=== PATIENT | male | born 1955 | race Caucasian/White ===

== ENCOUNTER 2016-10-13 16:06 | Inpatient (IN) | payer OTHER, MEDICARE ==
[~2016-10-13] VITALS: Ht 182.9 cm; Wt 109.8 kg
[2016-10-13] MEDS ORDERED: CLON1TAB PO (16:24)
[2016-10-13] MEDS ORDERED: DEXT1CAP3 PO (16:24)
[2016-10-13] MEDS ORDERED: DIVA125C PO (16:24)
[2016-10-13] MEDS ORDERED: RAME8TAB9 PO (16:24)
--- NOTE | 2016-10-13 16:27 | NUR ---
pt medically cleared. transfer to floor pending due mhu being ready to accept the pt.
--- NOTE | 2016-10-13 18:32 | NUR ---
pt transfered to [facility] in stable condition
[2016-10-13 20:00] VITALS: BP 149/88
[2016-10-13] MEDS ORDERED: TEMAZEPAM 7.5 MG CAPSULE ONE (22:51)
[2016-10-13] MEDS: TEMAZEPAM 7.5 MG CAPSULE PO PRN (22:54)
--- NOTE | 2016-10-14 06:40 | NUR ---
GPS NURSING: PT IS ADMITTED FROM ER AT 1815 VIA WHEELCHAIR. PT IS ALERT AND ORIENTED X 1. PER HOLD, PT BECAME INCREASINGLY CONFUSED, ANXIOUS, AND AGITATED. PT GRABBED CAREGIVER BY THE NECK. PT IS POOR HISTORIAN AND UNABLE TO PROVIDE ANY INFORMATION. PT IS ABLE TO FOLLOW DIRECTIONS AT THIS TIME. PT IS FORGETFUL AND ASKS THE SAME QUESTION. STUTTER IS PRESENT AND PT HAS DIFFICULTY STATING HIS NEEDS. PT AMBULATES WITHOUT ASSISTANCE. PT WANDERS INTO WRONG ROOMS AND NEEDS TO BE REDIRECTED. PT'S WAS NOTIFIED. DR. AMANDA WAS NOTIFIED. PT HAS NO MEDICAL MEDICATIONS. PT IS UNABLE TO SIGN ANY PAPERWORK. WILL CONTINUE TO MONITOR.
[2016-10-14 07:30] VITALS: BP 136/90
[2016-10-14] MEDS: MAG HYDROX/AL HYDROX/SIMETH 30 ML LIQUID UDC PO PRN (12:50)
[2016-10-14] MEDS ORDERED: HALOPERIDOL 2 MG TABLET PO SCH (13:00)
[2016-10-14] MEDS: BENZTROPINE MESYLATE 1 MG TABLET PO SCH ×2 (14:24→17:09)
[2016-10-14] MEDS: FLUVOXAMINE MALEATE 25 MG TABLET PO SCH ×2 (14:24→17:09)
[2016-10-14] MEDS: HALOPERIDOL 5 MG TABLET PO SCH ×2 (14:25→17:09)
[2016-10-14] MEDS: DIVALPROEX SPRINKLE 125 MG CAP.SPRINK PO SCH ×2 (14:25→17:09)
--- NOTE | 2016-10-14 15:29 | NUR ---
UR Note: Spoke with Timmy Porter CM [phone]. FAX [phone] and provided him with clinicals. The patient has been authorized from 10/13/16 through 10/15/16 with review due on 10/16/16. Authorization #[id number]
[2016-10-14] MEDS: CLONAZEPAM 0.5 MG TABLET PO SCH (17:10)
[2016-10-14] MEDS: TRAZODONE 50 MG TABLET PO SCH (20:11)
[2016-10-14 20:16] VITALS: BP 136/74
--- NOTE | 2016-10-14 20:50 | NUR ---
PATIENT RECEIVED SITTING IN DAY ROOM, WONDERING FROM DAY ROOM TO ROOM. NO AGGRESSIVE OR COMBATIVE BEHAVIOR NOTED WILL CONTINUE TO MONITOR. PATIENT REMAINS CONFUSED AND DISORIENTED REQUIRES FREQUENT REDIRECTION AND PROMPTING.PATIENT COMPLAINT WITH MEDICATION AND CARE. NO AGGRESSIVE OR COMBATIVE BEHAVIOR NOTED WILL CONTINUE TO MONITOR. PATIENT IS EASILY AGITATED, AND EASILY IRRITABLE WILL REDIRECT NEEDED. BED IN LOWEST POSITION, BED LOCKED.
--- NOTE | 2016-10-15 05:43 | NUR ---
PATIENT SLEPT 9 HOURS, NO AGGRESSIVE OR COMBATIVE BEHAVIOR NOTED.
[2016-10-15 07:30] VITALS: BP 123/81
[2016-10-15] MEDS: BENZTROPINE MESYLATE 1 MG TABLET PO SCH ×3 (08:20→18:05)
[2016-10-15] MEDS: HALOPERIDOL 5 MG TABLET PO SCH ×3 (08:20→18:05)
[2016-10-15] MEDS: DIVALPROEX SPRINKLE 125 MG CAP.SPRINK PO SCH ×3 (08:20→18:05)
[2016-10-15] MEDS: CLONAZEPAM 0.5 MG TABLET PO SCH ×2 (08:20→18:04)
[2016-10-15] MEDS: FLUVOXAMINE MALEATE 25 MG TABLET PO SCH ×3 (08:20→18:05)
--- NOTE | 2016-10-15 13:45 | NUR ---
Initial discharge instructions: The patient resides at home [[address] [place] [address]; ] with his family. The patient's is his primary caregiver in addition to a professional caregiver that was coming to stay with the patient while his was at work. Spoke with the patient's /DPOA who stated that she does not think she can take him back home due to his unpredictable behavior. She stated that she is considering placing the patient at a halfway facility that can better meet his needs. SS will speak with patient, family, and MD regarding most appropriate discharge. SS will form a safe and proper discharge plan.
[2016-10-15 15:20] VITALS: BP 110/82
--- NOTE | 2016-10-15 19:45 | NUR ---
PT RECEIVED WANDERING IN THE [address], REMAINS FORGETFUL AND DISORIENTED. PT RESPONDS TO DIRECTIONS AND PROMPTING. NO AGITATION, PT SOMEWHAT ANXIOUS WHEN HE CANNOT REMEMBER THINGS. NEEDS FREQUENT REDIRECTION, WILL CONTINUE TO MONITOR.
[2016-10-15] MEDS: TRAZODONE 50 MG TABLET PO SCH (20:15)
[2016-10-15 20:35] VITALS: BP 136/70
[2016-10-16] MEDS: TEMAZEPAM 7.5 MG CAPSULE PO PRN (00:19)
[2016-10-16 07:05] LABS: BASOPHILS % (AUTO) 0.3 % (0.0-2.0); EOSINOPHILS % (AUTO) 0.7 % (0.0-7.0); HEMATOCRIT 44.6 % (36.7-47.1); HEMOGLOBIN 15.7 g/dL (12.5-16.3); LYMPHOCYTES # (AUTO) 2.3 K/uL (20.0-40.0); MEAN CORPUSCULAR HEMOGLOBIN 33.6 uug (23.8-33.4); MEAN CORPUSCULAR HGB CONC 35 g/dL (32.5-36.3); MEAN CORPUSCULAR VOLUME 95.4 fL (73.0-96.2); MONOCYTES # (AUTO) 0.6 K/uL (2.0-10.0); MONOCYTES % (AUTO) 12.5 % (0.0-11.0); NEUTROPHILS # (AUTO) 2.2 K/uL (1.8-8.9); NEUTROPHILS % (AUTO) 43.5 % (38.5-71.5); PLATELET COUNT (AUTO) 143 K/uL (152-348); RED BLOOD CELL COUNT(AUTO) 4.67 MIL/uL (4.06-5.63); WHITE BLOOD COUNT (AUTO) 5.1 K/uL (3.6-10.2)
[2016-10-16 07:30] VITALS: BP 131/89
[2016-10-16 07:40] LABS: THYROID STIMULATING HORMONE 5.876 mIU/mL (0.358-3.740)
[2016-10-16 07:42] LABS: ALBUMIN 3.6 g/dL (3.4-5.0); BILIRUBIN,TOTAL 0.7 mg/dL (0.2-1.0); CALCIUM 9.1 mg/dL (8.5-10.1); MAGNESIUM 1.8 mg/dL (1.8-2.4); PHOSPHOROUS 4.1 mg/dL (2.5-4.9); POTASSIUM 3.8 mmol/L (3.5-5.1); TOTAL PROTEIN, SERUM 6.9 g/dL (6.4-8.2)
[2016-10-16] MEDS: BENZTROPINE MESYLATE 1 MG TABLET PO SCH ×3 (08:09→17:56)
[2016-10-16] MEDS: DIVALPROEX SPRINKLE 125 MG CAP.SPRINK PO SCH ×3 (08:09→17:34)
[2016-10-16] MEDS: HALOPERIDOL 5 MG TABLET PO SCH ×3 (08:09→17:34)
[2016-10-16] MEDS: FLUVOXAMINE MALEATE 25 MG TABLET PO SCH ×3 (08:09→17:35)
[2016-10-16] MEDS: CLONAZEPAM 0.5 MG TABLET PO SCH ×2 (08:09→17:34)
--- NOTE | 2016-10-16 12:55 | NUR ---
WEEKLY MEETING PO INTAKE GOOD ON REGULAR DIET, 75-100%. NO DIET RECOMMENDATIONS AT THIS TIME. LAST BM 10/15 SKIN INTACT MEDS: LIPITOR, NO DNI NOTED LABS: CHOLESTEROL 212 (H), LDL 136 (H) - REC FISH OIL NUTRITION DIAGNOSIS: ALTERED NUTRITION RELATED LABS RELATED TO CLINICAL CONDITION EVIDENCED BY ELEVATED LIPID LABS. MONITOR LABS, PO, WEIGHT Addendum: 10/16/16 at [address] Amended: Links added.
[2016-10-16 13:36] VITALS: BP 129/77
--- NOTE | 2016-10-16 15:35 | NUR ---
UR Note: Spoke with Timmy Porter CM [phone]. FAX [phone] and provided him with clinicals. The patient has been authorized from 10/16/16 through 10/18/16. Authorization #[id number] Addendum: 10/17/16 at 1028 by ADOLFO SIMPSON Review due Friday10/18/16
[2016-10-16 16:00] VITALS: BP 134/76
[2016-10-16] MEDS: TRAZODONE 50 MG TABLET PO SCH (20:07)
[2016-10-16] MEDS: ATORVASTATIN 10 MG TABLET PO SCH (20:07)
[2016-10-16 20:33] VITALS: BP 143/80
--- NOTE | 2016-10-16 21:01 | NUR ---
PATIENT RECEIVED LAYING IN BED. REMAINS CONFUSED AND DISORIENTED BUT REDIRECTABLE. PT IS EASILY FRUSTRATED. NO ACUTE DISTRESS NOTED. SAFETY MEASURES MAINTAINED.
[2016-10-17 07:30] VITALS: BP 140/68
[2016-10-17] MEDS: CLONAZEPAM 0.5 MG TABLET PO SCH ×2 (08:28→16:28)
[2016-10-17] MEDS: FLUVOXAMINE MALEATE 25 MG TABLET PO SCH ×3 (08:28→16:27)
[2016-10-17] MEDS: HALOPERIDOL 5 MG TABLET PO SCH ×3 (08:28→16:28)
[2016-10-17] MEDS: DIVALPROEX SPRINKLE 125 MG CAP.SPRINK PO SCH ×3 (08:28→16:28)
[2016-10-17] MEDS: BENZTROPINE MESYLATE 1 MG TABLET PO SCH ×3 (08:28→16:27)
--- NOTE | 2016-10-17 10:13 | NUR ---
Blender Helper TATIANA spoke with the patient's Luna Hernandez on Friday10/14/16 regarding patient's discharge plan. Luna stated that she does not feel comfortable taking the patient back home due to his unpredictable behavior. She stated that although she and a professional caregiver take care of the patient, she does think it is safe for her to manage the patient at home any longer. Luna stated that the patient has a budget of $2,100 per month that can be used towards placement at a [facility] facility (assisted living or board and care). TATIANA informed Luna that the patient does not have any skilled need and that it is unlikely that the patient's insurance will authorize SNF placement. TATIANA referred Luna to [facility], contact: Armando March and Luna stated that she would like to accept his suggestions/resources. TATIANA spoke with Armando March on 10/15/16 who stated that he spoke with Luna and that she told him she does not want to pay privately. She told Armando that she is hoping that she can place the patient into a SNF for assisted care once his medicare and medical are active. Tatiana called Luna to follow-up regarding placement on Friday10/16/16 and Luna handed the phone to her elder law assistant attorney general Page. Spoke with Page who asked if the patient can be placed at a SNF short term because the patient's medical is pending. TATIANA informed Page that TATIANA will ask the patient's insurance if they can authorize SNF placement short term but that there is no guarantee. Page then handed the phone back to Luna who stated that she does not want to pay privately. Tatiana again informed Luna that the SW will attempt to get authorization for SNF placement through [facility] but that it is not a guarantee and that there must be a second plan (home with 24 hour care vs. assisted living/board and care placement). TATIANA is actively attempting to contact patient's health insurance to see if they will authorize SNF placement for the patient. Addendum: 10/17/16 at 1243 by ADOLFO SIMPSON Per 's request, an inquiry was sent to several SNFs: 1.) [facility] 2.) [facility] 3.) [facility] 4.) [facility] 5.) [facility] [phone] - not able to accept per Sheron in admissions
[2016-10-17 13:11] VITALS: BP 146/80
[2016-10-17 16:00] VITALS: BP 124/88
[2016-10-17] MEDS: AMLODIPINE 5 MG TABLET PO SCH (16:28)
[2016-10-17] MEDS: LORAZEPAM 0.5 MG TABLET PO PRN (19:40)
[2016-10-17] MEDS: TRAZODONE 50 MG TABLET PO SCH (20:01)
[2016-10-17] MEDS: ATORVASTATIN 10 MG TABLET PO SCH (20:01)
[2016-10-17 20:05] VITALS: BP 166/83
[2016-10-17] MEDS: TEMAZEPAM 7.5 MG CAPSULE PO PRN (22:50)
[2016-10-18 07:30] VITALS: BP 145/85
[2016-10-18] MEDS: DIVALPROEX SPRINKLE 125 MG CAP.SPRINK PO SCH ×3 (08:36→16:14)
[2016-10-18] MEDS: FLUVOXAMINE MALEATE 25 MG TABLET PO SCH ×3 (08:36→16:14)
[2016-10-18] MEDS: CLONAZEPAM 0.5 MG TABLET PO SCH ×2 (08:36→16:14)
[2016-10-18] MEDS: HALOPERIDOL 5 MG TABLET PO SCH ×4 (08:36→21:04)
[2016-10-18] MEDS: BENZTROPINE MESYLATE 1 MG TABLET PO SCH ×4 (08:36→21:04)
[2016-10-18] MEDS: AMLODIPINE 5 MG TABLET PO SCH (08:36)
[2016-10-18 09:04] LABS: THYROID STIMULATING HORMONE 2.784 mIU/mL (0.358-3.740)
[2016-10-18] MEDS: LORAZEPAM 0.5 MG TABLET PO PRN (09:21)
[2016-10-18] MEDS ORDERED: LORAZEPAM 1 MG TABLET PO PRN (11:30)
[2016-10-18 16:04] VITALS: BP 132/82
[2016-10-18 16:11] LABS: *BILIRUBIN,URIN NEGATIVE (NEGATIVE); *BLOOD, URINE Trace-intact (NEGATIVE); *COLOR,URINE YELLOW (YELLOW); *KETONES,URINE NEGATIVE (NEGATIVE); *PROTEIN,URINE NEGATIVE (NEGATIVE); *UROBILINOGEN,URINE 0.2 E.U./dl (NORMAL); LEUKOCYTE ESTERASE ,URINE NEGATIVE (NEGATIVE); NITRITE, URINE NEGATIVE (NEGATIVE); UGLUCOSE NEGATIVE (NEGATIVE)
--- NOTE | 2016-10-18 16:32 | NUR ---
UR Note: Spoke with Timmy Porter CM [phone] ext. [phone] and provided him with clinicals. The patient has been authorized for an additional 2 days (10/19/16-10/20/16) with review due on 10/21/16. Authorization #[id number]
[2016-10-18 17:16] LABS: *CLARITY,URINE CLEAR (CLEAR)
[2016-10-18 17:18] LABS: WBC,URINE 0-3 /HPF (0-3)
[2016-10-18 20:58] VITALS: BP 131/86
[2016-10-18] MEDS ORDERED: HALOPERIDOL 5 MG TABLET PO SCH (21:00)
[2016-10-18] MEDS: ATORVASTATIN 10 MG TABLET PO SCH (21:03)
[2016-10-18] MEDS: RIVASTIGMINE TARTRATE 1.5 MG CAPSULE PO SCH (21:03)
[2016-10-18] MEDS: TRAZODONE 100 MG TABLET PO SCH (21:04)
[2016-10-18] MEDS ORDERED: LORAZEPAM 0.5 MG TABLET PO PRN (22:15)
[2016-10-19 07:30] VITALS: BP 135/94
[2016-10-19] MEDS: AMLODIPINE 5 MG TABLET PO SCH (08:32)
[2016-10-19] MEDS: RIVASTIGMINE TARTRATE 1.5 MG CAPSULE PO SCH ×2 (08:32→21:33)
[2016-10-19] MEDS: FLUVOXAMINE MALEATE 25 MG TABLET PO SCH ×3 (08:32→17:15)
[2016-10-19] MEDS: BENZTROPINE MESYLATE 1 MG TABLET PO SCH ×3 (08:32→21:34)
[2016-10-19] MEDS: HALOPERIDOL 5 MG TABLET PO SCH ×3 (08:32→21:34)
[2016-10-19] MEDS: CLONAZEPAM 0.5 MG TABLET PO SCH ×2 (08:33→17:15)
[2016-10-19] MEDS: DIVALPROEX SPRINKLE 125 MG CAP.SPRINK PO SCH ×3 (08:33→17:15)
[2016-10-19] MEDS ORDERED: HALOPERIDOL 5 MG TABLET PO SCH (09:00)
[2016-10-19 16:00] VITALS: BP 132/81
[2016-10-19 21:04] VITALS: BP 139/81
[2016-10-19] MEDS: TRAZODONE 100 MG TABLET PO SCH (21:33)
[2016-10-19] MEDS: ATORVASTATIN 10 MG TABLET PO SCH (21:34)
--- NOTE | 2016-10-19 23:03 | NUR ---
GPS/NSG PATIENT FIRST OBSERVED IN ROOM AWAKE. PATIENT CONTINUES 1:1 INTERVENTION FOR SAFETY. PATIENT WANDERS IN VARIOUS DIRECTIONS IF NOT MONITORED AT ALL TIMES PATIENT IS AT HIGH RISK FOR FALLS. COMPLIANT WITH MEDICATION WITH NURSING INTERVENTION.
[2016-10-20 07:30] VITALS: BP 149/91
[2016-10-20] MEDS: AMLODIPINE 5 MG TABLET PO SCH ×2 (08:22→21:23)
[2016-10-20] MEDS: BENZTROPINE MESYLATE 1 MG TABLET PO SCH ×3 (08:22→21:22)
[2016-10-20] MEDS: DIVALPROEX SPRINKLE 125 MG CAP.SPRINK PO SCH ×3 (08:22→17:02)
[2016-10-20] MEDS: RIVASTIGMINE TARTRATE 1.5 MG CAPSULE PO SCH ×2 (08:22→21:21)
[2016-10-20] MEDS: HALOPERIDOL 5 MG TABLET PO SCH ×3 (08:22→21:21)
[2016-10-20] MEDS: CLONAZEPAM 0.5 MG TABLET PO SCH ×2 (08:22→17:02)
[2016-10-20] MEDS: FLUVOXAMINE MALEATE 25 MG TABLET PO SCH ×3 (08:22→17:02)
[2016-10-20] MEDS: ACETAMINOPHEN 325 MG TABLET PO PRN (13:40)
[2016-10-20 16:00] VITALS: BP 145/81
[2016-10-20] MEDS: TRAZODONE 100 MG TABLET PO SCH (21:21)
[2016-10-20] MEDS: ATORVASTATIN 10 MG TABLET PO SCH (21:22)
[2016-10-20 21:25] VITALS: BP 145/82
[2016-10-21 07:30] VITALS: BP 132/88
[2016-10-21 08:13] LABS: ALBUMIN 3.5 g/dL (3.4-5.0); BILIRUBIN,TOTAL 0.5 mg/dL (0.2-1.0); CALCIUM 8.7 mg/dL (8.5-10.1); CREATININE 1.1 mg/dL (0.6-1.3); MAGNESIUM 1.6 mg/dL (1.8-2.4); PHOSPHOROUS 2.6 mg/dL (2.5-4.9); POTASSIUM 3.4 mmol/L (3.5-5.1); TOTAL PROTEIN, SERUM 6.8 g/dL (6.4-8.2)
[2016-10-21] MEDS: RIVASTIGMINE TARTRATE 1.5 MG CAPSULE PO SCH ×2 (08:25→21:01)
[2016-10-21] MEDS: BENZTROPINE MESYLATE 1 MG TABLET PO SCH ×3 (08:25→21:02)
[2016-10-21] MEDS: AMLODIPINE 5 MG TABLET PO SCH ×2 (08:25→21:03)
[2016-10-21] MEDS: DIVALPROEX SPRINKLE 125 MG CAP.SPRINK PO SCH ×3 (08:25→18:23)
[2016-10-21] MEDS: HALOPERIDOL 5 MG TABLET PO SCH ×3 (08:26→21:02)
[2016-10-21] MEDS: FLUVOXAMINE MALEATE 25 MG TABLET PO SCH ×3 (08:26→18:23)
[2016-10-21] MEDS: CLONAZEPAM 0.5 MG TABLET PO SCH ×2 (08:26→18:23)
[2016-10-21 08:36] LABS: BASOPHILS % (AUTO) 0.2 % (0.0-2.0); EOSINOPHILS % (AUTO) 0.7 % (0.0-7.0); HEMATOCRIT 45.7 % (36.7-47.1); HEMOGLOBIN 15.9 g/dL (12.5-16.3); LYMPHOCYTES # (AUTO) 0.5 K/uL (20.0-40.0); LYMPHOCYTES % (AUTO) 8.5 % (20.5-51.5); MEAN CORPUSCULAR HEMOGLOBIN 33.2 uug (23.8-33.4); MEAN CORPUSCULAR HGB CONC 35 g/dL (32.5-36.3); MEAN CORPUSCULAR VOLUME 95.6 fL (73.0-96.2); MONOCYTES # (AUTO) 0.6 K/uL (2.0-10.0); NEUTROPHILS # (AUTO) 4.7 K/uL (1.8-8.9); NEUTROPHILS % (AUTO) 80.6 % (38.5-71.5); PLATELET COUNT (AUTO) 140 K/uL (152-348); RED BLOOD CELL COUNT(AUTO) 4.78 MIL/uL (4.06-5.63); RED CELL DISTRIBUTION WIDTH 12.8 % (12.1-16.2); WHITE BLOOD COUNT (AUTO) 5.8 K/uL (3.6-10.2)
[2016-10-21] MEDS ORDERED: POTASSIUM CHLORIDE 20 MEQ TAB.PRT.SR PO ONE (10:15)
[2016-10-21] MEDS ORDERED: MAGNESIUM OXIDE 400 MG TABLET PO ONE (10:15)
[2016-10-21 10:45] LABS: BAND % (MANUAL) 1 % (0-10); LYMPHOCYTES % (MANUAL) 5 % (20-40); MONOCYTES % (MANUAL) 9 % (2-10); NEUTROPHILS % (MANUAL) 85 % (42-75)
[2016-10-21 10:46] LABS: PLATELET ESTIMATE SLIGHT DECREASED
[2016-10-21] MEDS: MAGNESIUM HYDROXIDE 30 ML LIQUID UDC PO PRN (11:35)
--- NOTE | 2016-10-21 13:04 | NUR ---
GPS/RN- PATIENT WEAK UNABLE TO PARTICIPATE WITH TOILETING, PATIENT UNABLE TO STAND UP, HELD MEDS THIS AFTERNOON, DECOMPENSATING IN ADL. CONTINUE TO MONITOR
[2016-10-21] MEDS ORDERED: BISACODYL 10 MG SUPP.RECT RC ONE (14:30)
--- NOTE | 2016-10-21 15:30 | NUR ---
GPS/RN- UNABLE TO SAFELY ADMINISTER SUPPOSITORY AT THIS TIME, PATIENT GUARDED AND HISTORY OF COMBATIVE BEHAVIOR, WILL ATTEMPT LATER THIS EVENING.
[2016-10-21 15:51] VITALS: BP 147/91
--- NOTE | 2016-10-21 16:58 | NUR ---
Spoke with , Mariel [phone] and discussed placement with her. Advised her Yumi has received many rejections from facilities. She insists she cannot take pt. home and pay for a caregiver but is willing to pay out of pocket until his Medi Walter kicks in. Will discuss with Yumi. Soco Mehta [phone] was contacted by this mortgage or loan underwriter. She requested that packet be faxed to her and Yumi agreed to do this. is open to [facility] Nguyen as mortgage or loan underwriter advised her that this facility can provide for his needs and since she is unable to care for him at home, we need to find an accepting facility which has not come to fruition so far. is also planning to take him off her healthplan so that he has straights Medicare. Since she is employed she put pt. on her healthplan so Medicare is secondary. She was hoping for a facility closer to home but will go where appropriate placement is found. Discussed all these factors with Yumi will follow up with , Mariel [phone] and Soco Nguyen [phone].
[2016-10-21] MEDS: BISACODYL 10 MG SUPP.RECT RC PRN (18:20)
--- NOTE | 2016-10-21 18:21 | NUR ---
GPS/RN- ADMINISTERED RECTAL SUPPOSITORY, PATIENT CONSTIPATED, ABDOMEN DISTENDED, LESS ANXIOUS, ABLE TO REDIRECT AND DISTRACT TO DECREASE ANXIETY.
[2016-10-21] MEDS: ATORVASTATIN 10 MG TABLET PO SCH (21:01)
[2016-10-21] MEDS: TRAZODONE 100 MG TABLET PO SCH (21:01)
[2016-10-21 21:04] VITALS: BP 155/87
[2016-10-21] MEDS: DOCUSATE SODIUM 100 MG/10 ML LIQUID UDC PO SCH (21:05)
--- NOTE | 2016-10-21 22:00 | NUR ---
received to care, lying in bed, asleep, but easy to awaken. 1;1 sitter remains at side at all times, for safety. abdomen remains distended, and tender to touch. no results yet from suppository. compliant with medications and staff direction. colace given at bedtime. apple juice and applesauce given, as well. as of 2200, he remains asleep. no distress noted. will continue to monitor closely.
--- NOTE | 2016-10-22 02:00 | NUR ---
pt had a small, soft bowel movement. diaper change was given. pt remains cooperative.
--- NOTE | 2016-10-22 02:20 | NUR ---
appears to be asleep. no distress noted.
--- NOTE | 2016-10-22 06:00 | NUR ---
slept 8 hours, total. assisted with AM care, and shower. had a very large soft/loose bowel movement. currently up in allegra chair. no distress noted. sitter remains at side.
[2016-10-22 07:30] VITALS: BP 154/90
[2016-10-22] MEDS: BENZTROPINE MESYLATE 1 MG TABLET PO SCH ×2 (08:16→12:41)
[2016-10-22] MEDS: DOCUSATE SODIUM 100 MG/10 ML LIQUID UDC PO SCH ×2 (08:16→21:00)
[2016-10-22] MEDS: RIVASTIGMINE TARTRATE 1.5 MG CAPSULE PO SCH ×2 (08:17→21:24)
[2016-10-22] MEDS: CLONAZEPAM 0.5 MG TABLET PO SCH ×3 (08:17→16:59)
[2016-10-22] MEDS: HALOPERIDOL 5 MG TABLET PO SCH ×3 (08:17→16:59)
[2016-10-22] MEDS: FLUVOXAMINE MALEATE 25 MG TABLET PO SCH ×3 (08:17→16:59)
[2016-10-22] MEDS: DIVALPROEX SPRINKLE 125 MG CAP.SPRINK PO SCH ×3 (08:18→16:59)
[2016-10-22] MEDS: AMLODIPINE 5 MG TABLET PO SCH ×2 (08:18→21:24)
--- NOTE | 2016-10-22 08:18 | NUR ---
UR Note: Called Timmy Porter CM [phone] ext. [phone] and left clinicals on his voicemail yesterday (10/21/16). Received a call from Timmy requesting for a peer to peer review yesterday. Timmy stated that someone from [facility] would be calling SW shortly to arrange an appointment for the review, however a call/voicemail was never received yesterday or today. Timmy was made aware that Dr. Mahmood would be covering for Dr. Guthrie and was provided with his contact information yesterday. Authorization #[id number]
--- NOTE | 2016-10-22 09:09 | NUR ---
Sw has referred to the following facilities per patient's 's request [Lunasanchez Thomasn ]: 1.) [facility] - not able to accept per Rikki 2.) [facility] - not able to accept per [place] 3.) [facility] - not able to accept per Valery 4.) [facility] - not able to accept per Alexandra in admissions 5.) [facility] [phone] - not able to accept per Sheron in admissions 6.) [facility] - not able to accept 7.) [facility] - not able to accept 8.) [facility] - not able to accept per Radha 9.) [facility] - not able to accept per Ally 10.) [facility] - Awaiting response 11.) [facility] - Awaiting response 12.) [facility] - Awaiting response 13.) [facility] - not able to accept per Beena 14.) [facility] - Awaiting response
--- NOTE | 2016-10-22 12:55 | NUR ---
[address] [employer] [employer] Patient's Luna Hernandez requested that the patient's facesheet, H&P, and medication list be faxed to Single Fold Machine Operator Vidhya . Per Luna, Vidhya is someone that was referred to her through a family member who will be assisting in finding placement for the patient. TATIANA has faxed over the requested documentation to Vidhya per Luna's request. TATIANA will make all efforts to assist in a safe and proper discharge plan for the patient.
--- NOTE | 2016-10-22 16:06 | NUR ---
UR Note: Received a call from Candy with [facility] ext. [phone] requesting peer to peer review. Appointment was set-up for Dr. Adam Briseno to call Dr. Natalia Mahmood at 1:30 pm today. Received a call from Candy with the outcome: The patient was authorized for 10/21-08/24 (yesterday and today) with review due tomorrow (10/23/16), if the hospital is requesting additional days. Verbal clinicals must be provided by Christian SIMPSON to the original Timmy Ronquillo CM [phone] ext. [phone]. Authorization #[id number]
[2016-10-22 20:36] VITALS: BP 136/85
[2016-10-22] MEDS: ATORVASTATIN 10 MG TABLET PO SCH (21:25)
--- NOTE | 2016-10-22 22:00 | NUR ---
received to care, asleep in bed. is able to be awoken, but goes right back to sleep, after being engaged. compliant with medications, and fluids(apple juice, and water).abdomen remains slightly distended, and tender, to the touch.1;1 sitter remains at side, for safety. as of 2199, he remainsd asleep. no distress noted. will continue to monitor closely.
--- NOTE | 2016-10-23 06:00 | NUR ---
slept 6 hours, total.
[2016-10-23 07:30] VITALS: BP 150/91
[2016-10-23] MEDS: CLONAZEPAM 0.5 MG TABLET PO SCH ×2 (10:00→17:33)
[2016-10-23] MEDS: FLUVOXAMINE MALEATE 25 MG TABLET PO SCH (10:00)
[2016-10-23] MEDS: DIVALPROEX SPRINKLE 125 MG CAP.SPRINK PO SCH ×3 (10:00→17:33)
--- NOTE | 2016-10-23 10:00 | NUR ---
GPS/RN-patient continues lethargic but arousable this am, reviewed meds, some medications held at this time due to patient continues to be lethargic, difficult to ambulate, continues to requires assistance with physical therapy and two staff to ambulate continue to monitor and assist with adls.
[2016-10-23] MEDS: AMLODIPINE 5 MG TABLET PO SCH ×2 (10:20→20:35)
[2016-10-23] MEDS: DOCUSATE SODIUM 100 MG/10 ML LIQUID UDC PO SCH ×2 (10:20→21:23)
[2016-10-23] MEDS: RIVASTIGMINE TARTRATE 1.5 MG CAPSULE PO SCH ×2 (10:20→20:35)
[2016-10-23 12:20] VITALS: BP 159/99
[2016-10-23] MEDS: MAG HYDROX/AL HYDROX/SIMETH 30 ML LIQUID UDC PO PRN (13:13)
[2016-10-23] MEDS: BENZTROPINE MESYLATE 1 MG TABLET PO SCH (13:51)
--- NOTE | 2016-10-23 14:04 | NUR ---
WEEKLY MEETING: TOLERATING CURRENT DIET(REGULAR)EATING 50-100% OF MEALS ANTHROPOMETRY:HT IS 72",CURRENT WT IS 242LB,BMI 32.8-OBESITY,10/22 242LB(WHEELCHAIR),10/21 239LB 3LB WT GAIN IN ONE DAY LIKELY ERROR IN MEASUREMENTS,NURSING/CARTON FORMING MACHINE TENDER RECHECK WEIGHT LABS: CHOLESTEROL-212(H),LDL-136(H),ON LIPITOR MEDICATION:COLACE,NORVASC,LIPITOR DNI NORVASC WITH LOW NA DIET BM PRESENT SKIN INTACT NUTRITION DIAGNOSIS: SUBOPTIMAL PO INTAKE RELATED TO ALTERED MENTAL STATUS EVIDENCED BY PO INTAKE < 75% OF MEALS INTERVENTION:IF PO INTAKE CONTINUE TO DECLINE WILL CONSIDER BOOST MONITOR;PO INTAKE,WT,NEW LABS
--- NOTE | 2016-10-23 14:10 | NUR ---
WEEKLY MEETING: TOLERATING CURRENT DIET,EATING < 75% OF MEALS, PER RN ST CONSULT PLACED DUE TO PT'S POOR SWALLOWING REC F/U WITH ST REC DIET. ANTHROPOMETRY:3LB WT GAIN NOTICED IN ONE DAY LIKELY AN ERROR IN MEASUREMENTS ,NURSING/ABAP DEVELOPER RECHECK WEIGHT NUTRITION DIAGNOSIS: SUBOPTIMAL PO INTAKE RELATED TO ALTERED MENTAL STATUS/SWALLOWING DIFFICULTIES, EVIDENCED BY PO <75% OF MEALS INTERVENTION: WILL REC F/U WITH ST RECOMMENDATIONS FOR DIET. IF PO INTAKE CONTINUE TO DECLINE < 75%,WILL CONSIDER BOOST MONITOR:PO INTAKE,WT,NEW LABS Addendum: 10/23/16 at [address] Amended: Links added.
--- NOTE | 2016-10-23 15:16 | NUR ---
UR Note: Spoke with Timmy Porter CM [phone] ext. [phone] and provided him with clinicals. The patient has been authorized for an additional day (today 10/23/16). If the patient is not discharged tomorrow and the hospital is requesting for additional days, [facility] will be requesting another peer to peer review between the MDs. Authorization #[id number]
--- NOTE | 2016-10-23 15:29 | NUR ---
Per patient's 's request [Luna Hernandez ], the patient was referred to: [facility] [[address] [place] [address] ] - Per Elvia in admissions, unable to accept due to no male beds -- The patient's Tactical Deception Plans Officer Vidhya referred the patient to [facility] [[address] [place] [address] ]. Antonino in admission came to assess the patient today at 2:00 pm. SW awaiting response. -- The patient was also referred to: [facility] [[address] [place] [address] ] - Per Paco in admissions, the patient has been accepted and his insurance will cover his stay at the facility.
[2016-10-23 16:00] VITALS: BP 137/96
[2016-10-23 20:06] VITALS: BP 125/78
[2016-10-23] MEDS: ATORVASTATIN 10 MG TABLET PO SCH (20:35)
[2016-10-23] MEDS: TEMAZEPAM 7.5 MG CAPSULE PO PRN (21:08)
--- NOTE | 2016-10-23 22:00 | NUR ---
received to care, lying in bed, sleeping intermittently, 1;1 sitter at side, for safety. compliant with medications, and staff direction. PRN restoril was given at 2107. as of 2199, he remains awake, but less restless. will continue to monitor closely.
[2016-10-24] MEDS: MAGNESIUM HYDROXIDE 30 ML LIQUID UDC PO PRN (01:00)
--- NOTE | 2016-10-24 01:00 | NUR ---
has been awake, intermittently. assisted to the commode, twice, at his request, but had no bowel movement; PRN milk of magnesia given. will continue to monitor closely.
--- NOTE | 2016-10-24 06:00 | NUR ---
slept 5.5 hours. assisted with AM care, and shower. still no bowel movement. sitter remains at side. no distress noted. Addendum: 10/24/16 at 0656 by MONICA CRANDALL LVN CORRECTION/SLEPT 2.25 HOURS TOTAL.
--- NOTE | 2016-10-24 06:00 | NUR ---
CORRECTION/ SLEPT 2.25 HOURS, TOTAL.
[2016-10-24 07:32] LABS: CALCIUM 8.9 mg/dL (8.5-10.1); CREATININE 1.2 mg/dL (0.6-1.3); MAGNESIUM 2.2 mg/dL (1.8-2.4); POTASSIUM 4.1 mmol/L (3.5-5.1)
[2016-10-24 08:04] VITALS: BP 150/92
[2016-10-24] MEDS: DOCUSATE SODIUM 100 MG/10 ML LIQUID UDC PO SCH ×2 (08:06→20:27)
[2016-10-24] MEDS: AMLODIPINE 5 MG TABLET PO SCH ×3 (09:00→20:27)
[2016-10-24] MEDS: RIVASTIGMINE TARTRATE 1.5 MG CAPSULE PO SCH ×2 (09:00→20:27)
[2016-10-24] MEDS: FLUVOXAMINE MALEATE 25 MG TABLET PO SCH (09:00)
[2016-10-24] MEDS: CLONAZEPAM 0.5 MG TABLET PO SCH ×2 (09:00→17:15)
[2016-10-24] MEDS: DIVALPROEX SPRINKLE 125 MG CAP.SPRINK PO SCH ×3 (09:00→17:14)
--- NOTE | 2016-10-24 11:53 | NUR ---
NOTIFIED DR HERNANDEZ THAT PT IS UNABLE TO TAKE PO MEDS DUE TO SWALLOWING PROBLEMS. NOTIFIED THAT BP RUNS HIGH, DR HERNANDEZ IS AWARE, NO NEW ORDERS AT THIS TIME.
[2016-10-24] MEDS: BENZTROPINE MESYLATE 1 MG TABLET PO SCH (12:05)
--- NOTE | 2016-10-24 14:51 | NUR ---
UR Note: Received a call from Candy with [facility] ext. [phone] requesting peer to peer review for 10/24/16. Appointment was set-up for Dr. Michael Rhodes to call Dr. Natalia Mahmood at 1:00 pm today. Received a call from Candy with the outcome: The patient was authorized for today (10/24/16) with tomorrow and onward denied. If the hospital is requesting an appeal for additional days, SW must contact Timmy Ronquillo CM [phone] ext. [phone]. Authorization #[id number]
[2016-10-24 15:18] VITALS: BP 136/85
[2016-10-24 20:00] VITALS: BP 154/64
[2016-10-24] MEDS: ATORVASTATIN 10 MG TABLET PO SCH (20:27)
--- NOTE | 2016-10-25 06:14 | NUR ---
GPS: REMAIN CALM AND COOPERATIVE WITH CARE AND MEDICATION. ASSISTED WITH ADL'S. SLEPT 3:15 HRS THROUGH THE NIGHT. CONTINUE ON 1:1 SITTER @ BEDSIDE FOR SAFETY. CONTINUE PLAN OF CARE.
[2016-10-25 08:00] VITALS: BP 145/66
--- NOTE | 2016-10-25 08:41 | NUR ---
The following is a list of all SNFs that the patient has been referred to as of yesterday: 1.) [facility] - not able to accept per Rikki 2.) [facility] - not able to accept per [place] 3.) [facility] - not able to accept per Valery 4.) [facility] - not able to accept per Alexandra in admissions 5.) [facility] [phone] - not able to accept per Sheron in admissions 6.) [facility] - not able to accept 7.) [facility] - not able to accept 8.) [facility] - not able to accept per Radha 9.) [facility] - not able to accept per Ally 10.) [facility] - Awaiting response 11.) [facility] - Awaiting response 12.) [facility] - not able to accept 13.) [facility] - not able to accept per Beena 14.) [facility] - not able to accept 15.) [facility] - not able to accept 16.) [facility] - not able to accept 17.) [facility] - Accepted (patient's was made aware on 10/23/16) 18.) [facility] - Accepted (patient's was was made aware as of last week) 19.) [facility] - Awaiting response 20.) [facility] - Awaiting response 21.) [facility] - Awaiting response 22.) [facility] - Awaiting response The following facilities were specifically faxed per patient's 's request from a list provided to her by [facility] [contact: Macy ref#[id number]]: 23.) [facility] - Awaiting response 24.) [facility] - Awaiting response 25.) [facility] - Awaiting response 26.) [facility] - Awaiting response
[2016-10-25] MEDS: DOCUSATE SODIUM 100 MG/10 ML LIQUID UDC PO SCH ×2 (09:00→22:22)
[2016-10-25] MEDS: DIVALPROEX SPRINKLE 125 MG CAP.SPRINK PO SCH ×3 (09:00→18:03)
[2016-10-25] MEDS: FLUVOXAMINE MALEATE 25 MG TABLET PO SCH (09:00)
[2016-10-25] MEDS: RIVASTIGMINE TARTRATE 1.5 MG CAPSULE PO SCH ×2 (09:00→21:00)
[2016-10-25] MEDS: CLONAZEPAM 0.5 MG TABLET PO SCH ×2 (09:00→18:03)
[2016-10-25] MEDS: AMLODIPINE 5 MG TABLET PO SCH ×2 (09:00→22:23)
[2016-10-25] MEDS: BENZTROPINE MESYLATE 1 MG TABLET PO SCH (13:40)
[2016-10-25 16:00] VITALS: BP 136/82
--- NOTE | 2016-10-25 16:53 | NUR ---
Casino Gaming Worker SW spoke with the patient's Luna Hernandez and informed her multiple times that the patient is no longer authorized to stay at [facility]. Luna was informed today that the patient was accepted to [facility] [[address] [place] [address] ] and that they would be able to accept the patient today however Luna stated that she did not like the faiclity and that she will not have him discharged there. Luna was also informed that [facility] [[address] [place] [address] ] has accepted the patient but that he will have to pay privately ($6,750) for 30 days. The patient's stated that she does not know what she wants to do and that she is on her way now to tour [facility] and will make a decision then. She stated that if she does not like it, she will pay for the patient to stay at [facility] over night tonight. Lastly the patient's was also given the choice to take the patient home with home health and however she did not agree to this. Luna has been adivsed that she will be responsible for the cost of the stay if she delays pt discharge.
--- NOTE | 2016-10-25 17:03 | NUR ---
Tentative Discharge Note: In the case that the patient's agrees to discharge the patient to SNF, the patient may be discharged to [facility] [[address], [place] [address] ] via ambulance. Please speak with the patient's Luna and confirm discharge plans with her prior to discharging the patient. Please contact Abby Boyer in admissions at the facility to confirm the discharge as well.
[2016-10-25 20:21] VITALS: BP 170/100
[2016-10-25] MEDS: ATORVASTATIN 10 MG TABLET PO SCH (22:24)
--- NOTE | 2016-10-26 05:48 | NUR ---
GPS/NSG- Pharmacy Patient's called and requested Exelon be held because it made patient sick. reported patient became nauseous and produced emesis. No episodes witnessed by staff this shift, will continue to monitor patient to ensure well being as well as report it to physician.
[2016-10-26 08:00] VITALS: BP 142/85
[2016-10-26] MEDS: RIVASTIGMINE TARTRATE 1.5 MG CAPSULE PO SCH ×3 (08:54→20:54)
[2016-10-26] MEDS: DIVALPROEX SPRINKLE 125 MG CAP.SPRINK PO SCH ×4 (08:54→17:00)
[2016-10-26] MEDS: DOCUSATE SODIUM 100 MG/10 ML LIQUID UDC PO SCH ×3 (08:54→20:54)
[2016-10-26] MEDS: CLONAZEPAM 0.5 MG TABLET PO SCH ×3 (08:54→17:00)
[2016-10-26] MEDS: FLUVOXAMINE MALEATE 25 MG TABLET PO SCH ×2 (08:55→09:00)
[2016-10-26] MEDS: AMLODIPINE 5 MG TABLET PO SCH ×3 (08:56→20:55)
[2016-10-26] MEDS: BENZTROPINE MESYLATE 1 MG TABLET PO SCH (13:05)
[2016-10-26 16:28] VITALS: BP 146/88
[2016-10-26] MEDS ORDERED: FLEET ENEMA 133 ML BOTTLE RC ONE (18:00)
--- NOTE | 2016-10-26 18:39 | NUR ---
PT NOTED TO HAVE DISTENDED, FIRM AND TENDER ABDOMEN. BOWEL SOUNDS ARE HYPOACTIVE. PT'S FAMILY INSISTING THAT PT BE TRANSFERRED TO [facility] BUT IS REFUSING TO ALLOW PT TAKE ANY MILK OF MAGNESIA. CALLED DR. HERNANDEZ WITH ORDER TO ADMINISTER FLEET ENEMA. EXPLAINED TO FAMILY THAT INTERVENTIONS NEED TO BE TAKEN BEFORE OTHER MORE DRASTIC EVENTS OCCURED, AND THE DOCTOR IS CALLED AND NOTIFIED. FAMILY AGREED TO MOM AND ENEMA. LAST BM NOTED TO BE 11/23/16. FLUIDS ENCOURAGED, TOLERATES WELL. WILL CONTINUE TO MONITOR.
[2016-10-26] MEDS: MAG HYDROX/AL HYDROX/SIMETH 30 ML LIQUID UDC PO PRN (18:45)
[2016-10-26] MEDS: MAGNESIUM HYDROXIDE 30 ML LIQUID UDC PO PRN (19:00)
--- NOTE | 2016-10-26 19:01 | NUR ---
PATIENT REC D FLEET ENEMA AND MOM 30CC FOR ABDOMINAL DISTENTION BOWEL SOUNDS HYPO ACTIVE , ABDOMEN FIRM. WANTS SOMETHING BEFORE ANY MORE PO MEDS , ELBOW RED ON RIGHT SIDE AND REDNESS ON LEFT SIDE NOTED. SMALL FECES BEFORE FLEET SOFT BROWN STGOOL CONTINUE TO MONITOR
[2016-10-26 20:39] VITALS: BP 136/83
[2016-10-26] MEDS: ATORVASTATIN 10 MG TABLET PO SCH (20:54)
[2016-10-26] MEDS: BISACODYL 10 MG SUPP.RECT RC PRN (21:32)
--- NOTE | 2016-10-26 21:57 | NUR ---
GPS/NSG Patient's requested that his be examined she had complaints regarding patient's distended abdomen and abrasion located on right elbow. Patient appears to place force on elbows while lying in bed, mepilex applied to prevent further irritation. Both elbows photographed and documented in chart. JOY LOADING MACHINE OPERATOR set turn Q2 hours added to patient's plan of care while in bed to prevent skin breakdown. Patient presents with a distended abdomen and has not had a reported bowel movement times four days. MOM and Fleet enema administered in the previous shift. nursing contacted Dr. Garces (on-call physician) to get further orders. KUB of abdomen ordered. Patient observed to have had a small bowel movement, soft brown formed stool. PRN supp. administered as ordered. Will follow up for outcome. Patient received a shower at 2200 ambulation encouraged. Patient able to walk from shower to room with moderate assist. Will continue to monitor for safety, patient is on a 1:1 for safety. monitor bowel movements.
--- NOTE | 2016-10-26 22:37 | NUR ---
NSG/GPS Communicated to patient's that physician ordered KUB and that I would notify her when results were made available as well as with any significant change.
--- NOTE | 2016-10-27 00:44 | NUR ---
GPS/NSG Called physician on-call to report KUB findings. Order to insert muhammad read back. Inserted muhammad output was 2300 mls tea color urine. Patient alert, tolerated insertion well. is aware patient no longer has abdominal distension. No distress noted, will continue to monitor.
[2016-10-27 01:22] LABS: *BILIRUBIN,URIN NEGATIVE (NEGATIVE); *BLOOD, URINE 3+ (NEGATIVE); *CLARITY,URINE CLEAR (CLEAR); *COLOR,URINE AMBER (YELLOW); *KETONES,URINE TRACE (NEGATIVE); *PROTEIN,URINE NEGATIVE (NEGATIVE); *UROBILINOGEN,URINE 0.2 E.U./dl (NORMAL); NITRITE, URINE NEGATIVE (NEGATIVE); UGLUCOSE NEGATIVE (NEGATIVE)
[2016-10-27 02:28] LABS: LEUKOCYTE ESTERASE ,URINE TRACE (NEGATIVE)
[2016-10-27 02:29] LABS: BACTERIA,URINE NONE SEEN /HPF (NONE SEEN); RBC,URINE 50-80 /HPF (0-3); SQUAMOUS EPITHELIAL CELL,UR FEW /HPF (NONE SEEN); WBC,URINE 0-3 /HPF (0-3)
[2016-10-27 07:30] VITALS: BP 129/79
[2016-10-27] MEDS: DIVALPROEX SPRINKLE 125 MG CAP.SPRINK PO SCH ×4 (09:00→17:45)
[2016-10-27] MEDS: AMLODIPINE 5 MG TABLET PO SCH ×3 (09:00→20:48)
[2016-10-27] MEDS: CLONAZEPAM 0.5 MG TABLET PO SCH ×3 (09:00→17:00)
[2016-10-27] MEDS: FLUVOXAMINE MALEATE 25 MG TABLET PO SCH ×2 (09:00→09:32)
[2016-10-27] MEDS: DOCUSATE SODIUM 100 MG/10 ML LIQUID UDC PO SCH ×3 (09:00→20:47)
[2016-10-27] MEDS: RIVASTIGMINE TARTRATE 1.5 MG CAPSULE PO SCH (09:32)
[2016-10-27] MEDS ORDERED: BISACODYL 10 MG SUPP.RECT RC PRN (10:30)
[2016-10-27] MEDS ORDERED: MIRALAX 17 GM POWD.PACK PO PRN (10:30)
[2016-10-27] MEDS: BENZTROPINE MESYLATE 1 MG TABLET PO SCH (13:00)
[2016-10-27 15:37] VITALS: BP 146/92
[2016-10-27 20:18] VITALS: BP 143/71
[2016-10-27] MEDS: ATORVASTATIN 10 MG TABLET PO SCH (20:48)
[2016-10-27] MEDS: ACETAMINOPHEN 325 MG TABLET PO PRN (20:49)
--- NOTE | 2016-10-27 22:40 | NUR ---
PATIENT REMAINS WITH 1:1 SITTER FOR SAFETY. PATIENT COMPLAINT WITH HS MEDICATION. PATIENT AWAKE IN BED SITTING UP. PATIENT IN NO APPARENT DISTRESS WILL CONTINUE TO MONITOR. NO AGGRESSIVE OR COMBATIVE BEHAVIOR NOTED, WILL CONTINUE TO MONITOR. BED IN LOWEST POSITION, BED LOCKED AND BED ALARM ON WHILE IN BED.
[2016-10-27] MEDS ORDERED: TEMAZEPAM 7.5 MG CAPSULE PO ONE (23:00)
[2016-10-27] MEDS ORDERED: TEMAZEPAM 7.5 MG CAPSULE PO PRN (23:00)
[2016-10-28 07:30] VITALS: BP 145/84
[2016-10-28 08:13] LABS: CALCIUM 8.2 mg/dL (8.5-10.1); CREATININE 0.9 mg/dL (0.6-1.3); POTASSIUM 3.4 mmol/L (3.5-5.1)
[2016-10-28] MEDS: CLONAZEPAM 0.5 MG TABLET PO SCH ×2 (08:46→17:16)
[2016-10-28] MEDS: DOCUSATE SODIUM 100 MG/10 ML LIQUID UDC PO SCH ×2 (08:46→20:22)
[2016-10-28] MEDS: FLUVOXAMINE MALEATE 25 MG TABLET PO SCH (08:46)
[2016-10-28] MEDS: DIVALPROEX SPRINKLE 125 MG CAP.SPRINK PO SCH ×3 (08:46→17:16)
[2016-10-28] MEDS: AMLODIPINE 5 MG TABLET PO SCH ×2 (08:47→20:22)
[2016-10-28] MEDS ORDERED: POTASSIUM CHLORIDE 20 MEQ TAB.PRT.SR PO ONE (10:15)
[2016-10-28] MEDS: BENZTROPINE MESYLATE 1 MG TABLET PO SCH (13:17)
--- NOTE | 2016-10-28 14:14 | NUR ---
The following is a list of all SNFs that the patient has been referred to as of today: 1.) [facility] - not able to accept per Rikki 2.) [facility] - not able to accept per [place] 3.) [facility] - not able to accept per Valery 4.) [facility] - not able to accept per Alexandra in admissions 5.) [facility] [phone] - not able to accept per Sheron in admissions 6.) [facility] - not able to accept 7.) [facility] - not able to accept 8.) [facility] - not able to accept per Radha 9.) [facility] - not able to accept per Ally 10.) [facility] - Awaiting response 11.) [facility] - Not able to accept 12.) [facility] - not able to accept 13.) [facility] - not able to accept per Beena 14.) [facility] - not able to accept 15.) [facility] - not able to accept 16.) [facility] - not able to accept 17.) [facility] - Accepted (patient's was made aware on 10/23/16) 18.) [facility] - Accepted (patient's was was made aware as of last week) 19.) [facility] - Awaiting response 20.) [facility] - Awaiting response 21.) [facility] - Awaiting response 22.) [facility] - Awaiting response 23.) [facility] - Not able to accept 24.) [facility] - Not able to accept 25.) [facility] - Not able to accept 26.) [facility] - Not able to accept Per patient's 's request, the patient was referred to the following facilities today: 27.) [facility] - Not able to accept 28.) [facility] - Awaiting response 29.) [facility] - Awaiting response
[2016-10-28 15:23] VITALS: BP 140/76
--- NOTE | 2016-10-28 17:31 | NUR ---
[employer]ment Banking Manager coal chute worker called patient's Luna Hernandez at 5:329 pm to discuss discharge planning with her and inform her that [facility] [[address] [place], [place] [id number] [address]; ] was reviewing the patient's clinicals and was going to get back to the social staff worker shortly. Luna stated, I'm going to have to pick him up myself and take him to another ER. You guys can't find him anywhere and I can't take him home." Tatiana reiterated that the patient's records are being reviewed and that it is very likely that [facility] may accept the patient today. TATIANA spoke with Daria in admissions at [facility] who stated that they will be able to accept the patient today. TATIANA called Luna back at 5:32 pm to inform her that the patient was accepted however Lnua stated, "I need to go look at the facility first." TATIANA asked Luna if she is not wanting to hospital to initiate the discharge to [facility] and Luna stated, "you can do whatever you want but I need to go see the place first." She then stated that if she does not think the facility is a good fit, she will pick up worker the patient herself and take him to an ER. TATIANA informed Luna that the SW is leaving shortly but that she will inform the pt's nurse Nish of the discharge plan. TATIANA re-stated the plan to Luna (that Luna will tour [facility], and if she is satisfied, she must contact Nish at the nursing station to initiate the discharge or if she would like to pick up worker the patient) and she hung up on the social staff worker.
--- NOTE | 2016-10-28 17:54 | NUR ---
Discharge note: The patient's will contact the nursing station and inform the patient's nurse if she would like to initiate the transfer to [facility] ([facility]) after touring the facility this evening. If she is agreeable, the patient will be discharged today to [facility] [[address] [place] [address]; ] via ambulance. Spoke with Daria in admissions at the facility who stated that they will be able to accept the patient today. The patient will follow-up with solder making laborer Dr. Bettie Donnelly and psychiatrist Dr. Darwin Roe. If the patient's does not agree to placement at [facility], she stated that she will be picking up the patient and taking him to another hospital ER.
[2016-10-28] MEDS: ATORVASTATIN 10 MG TABLET PO SCH (20:22)
[2016-10-28 20:58] VITALS: BP 130/73
--- NOTE | 2016-10-28 21:27 | NUR ---
PATIENT WAS TRANSPORTED TO [facility] VIA AMBULANCE MED RESPONSE [phone]. NO AGGRESSIVE OR COMBATIVE BEHAVIOR NOTED. GAVE REPORT TO TANVI CASTILLO, AT [facility]. EDWINA AWARE OF TRANSPORTATION. PATIENT HAS BELONGINGS.
--- NOTE | 2016-10-30 08:07 | NUR ---
UR Note: Spoke with Timmy Porter CM [phone] ext. [phone] on 10/25/16 and provided him with clinicals. Per Dale, he was going to request an expedited peer review request in order to obtain authorization. Authorization #[id number] Received a call yesterday (10/29/16) from Marissa with [employer] stating that there is an expedited peer review scheduled for 10/30/[address] Suri Sosa at 10:30 am, contact: . Dr. Mahmood was informed yesterday 10/29/16.
--- NOTE | 2016-10-31 10:56 | NUR ---
Received a call from Marissa with [facility] Grievance and Appeal Department stating that the patient was approved for 10/25/16-10/27/16. She stated that Dr. Mahmood agreed to these approved dates. Auth #[id number]
--- NOTE | 2016-11-01 13:17 | NUR ---
[facility] Clinicals: Spoke with Timmy Porter CM [phone] ext. [phone] today and provided him with [facility] clinicals. Authorization #[id number]
== END 2016-10-28 21:25 | DRG 885 ==
LOC: ER 16:10 → GPS 18:07
PROVIDERS: ADMIT Psychiatry & Neurology Psychiatry
DX: F31.64 Bipolar disorder, current episode mixed, severe, with psychotic features (principal); F02.81 Dementia in other diseases classified elsewhere, unspecified severity, with behavioral disturbance; K56.7 Ileus, unspecified; G30.1 Alzheimer's disease with late onset; E66.9 Obesity, unspecified; Z68.32 Body mass index [BMI] 32.0-32.9, adult; D69.6 Thrombocytopenia, unspecified; E78.5 Hyperlipidemia, unspecified; Z82.0 Family history of epilepsy and other diseases of the nervous system; I10 Essential (primary) hypertension; R60.0 Localized edema; E87.6 Hypokalemia; E83.42 Hypomagnesemia; R13.10 Dysphagia, unspecified; R33.9 Retention of urine, unspecified; R73.9 Hyperglycemia, unspecified
CPT/HCPCS: 36415; 74000; 76770; 80164; 83735; 84100; 84443; 85025; 87086; 92610; 97001; 97116; 97530; A4663